=== PATIENT | male | born 1975 | race Caucasian/White ===

== ENCOUNTER 2017-12-25 01:36 | Emergency (ER) ==
[2017-12-25 01:47] VITALS: BP 140/90; TEMP 98; BMI 37.5
[2017-12-25] MEDS ORDERED: PROTONIX PO STA (01:54)
[2017-12-25] MEDS ORDERED: ASPIRIN CHEWABLE PO STA (01:54)
[2017-12-25] MEDS ORDERED: GI COCKTAIL PO STA (01:54)
--- NOTE | 2017-12-25 01:58 | ED.PDOC ---
General ED Provider: Dr. HARJEET MACK Chief Complaint: Shortness of Air Stated Complaint: Patient having shortness of breath since yesterday, was not able to sleep, uses c pap, today started having heavyness in chest. does not radiate, no aggravating or relieving factors. Time Seen by Physician: 01:56 Mode of Arrival: Walk-In Information Source: Patient Primary Care Provider: PRISCILA OLIVAREZ Nursing and Triage Documentation Reviewed and Agree: Yes Reviewed sepsis parameters & appropriate labs ordered?: No System Inflammatory Response Syndrome: Not Applicable Sepsis Protocol: For patient's 13 years and over: Temp is 96.8 and below OR 101 and greater Pulse >90 BPM Resp >20/minute Acutely Altered Mental Status Are patient's symptoms suggestive of a new infection, such as: -Pneumonia -Skin, Soft Tissue -Endocarditis -UTI -Bone, Joint Infection -Implantable Device -Acute Abdominal Infection -Wound Infection -Meningitis -Blood Stream Catheter Infection -Unknown Cardiovascular Complaint Exam - Chest Pain Complaint/Exam Onset: Gradual Symptoms Are: Still present Timing: Constant Initial Severity: Moderate Current Severity: Moderate Location: Reports: Midsternal Pain Radiates: Reports: None Character: Reports: Heaviness Aggravating: Reports: None Alleviating: Reports: None Associated Signs and Symptoms: Reports: Short of air. Denies: Diaphoresis, Nausea, Vomiting, Fever, Palpitations, Cough, Hemoptysis, Back pain, Abdominal pain, Dizziness, Calf pain, Calf swelling Related Surgical History: Reports: None History of Healthcare-Acquired Pneumonia: Reports: No AMI/ACS Risk Factors: Reports: None TAD Risk Factors: Reports: None Pulmonary Embolism Risk Factors: Reports: None Prior Care for this Complaint: No Recent Stress Test: No Recent Echo/LV Function: No JVD Present: No Subcutaneous Emphysema Present: No Diminshed Breath Sounds: No Reproducible Chest Wall Pain: No Bilateral Pulses Present: No Unequal Pulses Noted: No If Risk Factors for PE Consider: Chest CT with contrast Differential Diagnoses: Stable Angina, GI Diseasae Quality Indicators For Acute MA or Cardiac Chest Pain: EKG in 10min., ASA if indicated Review of Systems - Review Of Systems Constitutional: Reports: Malaise, Weakness Eyes: Reports: No symptoms Ears, Nose, Mouth, Throat: Reports: No symptoms Respiratory: Reports: Short of air Cardiac: Reports: Chest pain GI: Reports: No symptoms : Reports: No symptoms Musculoskeletal: Reports: No symptoms Skin: Reports: No symptoms Neurological: Reports: No symptoms Endocrine: Reports: No symptoms Hematologic/Lymphatic: Reports: No symptoms All Other Systems: Reviewed and Negative Past Medical History - Past Medical History Previously Healthy: Yes Endocrine: Reports: Dyslipidemia Cardiovascular: Reports: Hypertension Respiratory: Reports: Other (DIGNA) Hematological: Reports: None Gastrointestinal: Reports: None Genitourinary: Reports: None Neuro/Psych: Reports: None Musculoskeletal: Reports: None Cancer: Reports: None - Surgical History General Surgical History: Reports: None - Family History Family History: Reports: None - Social History Smoking Status: Former smoker Hx Substance Use: No Alcohol Screening: Occasionally - Immunizations Tetanus Shot up to Date: Yes Physical Exam - Physical Exam Appearance: Well-appearing, No pain distress, Well-nourished Eyes: URMILA, EOMI, Conjunctiva clear ENT: Ears normal, Nose normal, Oropharynx normal Respiratory: Airway patent, Breath sounds clear, Breath sounds equal, Respirations nonlabored Cardiovascular: RRR, Pulses normal, No rub, No murmur GI/: Soft, Nontender, No masses, Bowel sounds normal, No Organomegaly Musculoskeletal: Normal strength, ROM intact, No edema, No calf tenderness Skin: Warm, Dry, Normal color Neurological: Sensation intact, Motor intact, Reflexes intact, Cranial nerves intact, Alert, Oriented Psychiatric: Affect appropriate, Mood appropriate Interpretation - Radiology Interpretation Radiology Interpretation By: Radiologist Radiology Results: Negative Exam Interpreted: CT Scan Re-Evaluation - Re-Evaluation Time of Re-Evaluation: 04:14 Status: Improved Critical Care Note - Critical Care Note Total Time (mins): 15 Course - Course Hematology/Chemistry: 12/25/17 02:20 12/25/17 02:20 Orders, Labs, Meds: Lab Review 12/25/17 12/25/17 12/25/17 01:55 02:20 02:20 WBC 7.32 RBC 4.68 L Hgb 14.5 Hct 40.2 L MCV 85.9 MCH 31.0 MCHC 36.1 H RDW Coeff of Jefry 12.1 Plt Count 234 Immature Gran % (Auto) 0.3 Neut % (Auto) 48.6 Lymph % (Auto) 37.0 [place] % (Auto) 10.1 H Eos % (Auto) 3.0 Baso % (Auto) 1.0 Immature Gran # (Auto) 0.0 Neut # (Auto) 3.6 Lymph # (Auto) 2.7 [place] # (Auto) 0.7 Eos # (Auto) 0.2 Baso # (Auto) 0.1 D-Dimer (Manual) Puncture Site Rr O2 Saturation 99.0 ABG pH 7.551 H* ABG pCO2 30.4 L ABG pO2 114.0 H ABG HCO3 26.6 H ABG Total CO2 28 ABG Base Excess 4 H Lauro Test + FiO2 % 21.0 Sodium 141 Potassium 3.8 Chloride 106 Carbon Dioxide 24 Anion Gap 14.8 BUN 14 Creatinine 1.08 Estimated GFR (MDRD) 75.00 BUN/Creatinine Ratio 12.96 Glucose 106 H Calcium 10.4 H Total Bilirubin 0.5 AST 23 ALT 45 Alkaline Phosphatase 57 Total Creatine Kinase 189 CK-MB (CK-2) 1.3 CK-MB (CK-2) % 0.43675 Troponin I < 0.0100 B-Natriuretic Peptide Total Protein 7.1 Albumin 3.9 Globulin 3.2 Albumin/Globulin Ratio 1.22 12/25/17 12/25/17 02:20 02:20 WBC RBC Hgb Hct MCV MCH MCHC RDW Coeff of Jefry Plt Count Immature Gran % (Auto) Neut % (Auto) Lymph % (Auto) [place] % (Auto) Eos % (Auto) Baso % (Auto) Immature Gran # (Auto) Neut # (Auto) Lymph # (Auto) [place] # (Auto) Eos # (Auto) Baso # (Auto) D-Dimer (Manual) 149.65 Puncture Site O2 Saturation ABG pH ABG pCO2 ABG pO2 ABG HCO3 ABG Total CO2 ABG Base Excess Lauro Test FiO2 % Sodium Potassium Chloride Carbon Dioxide Anion Gap BUN Creatinine Estimated GFR (MDRD) BUN/Creatinine Ratio Glucose Calcium Total Bilirubin AST ALT Alkaline Phosphatase Total Creatine Kinase CK-MB (CK-2) CK-MB (CK-2) % Troponin I B-Natriuretic Peptide 25 Total Protein Albumin Globulin Albumin/Globulin Ratio Orders Category Date Time Status ABG DRAW REQUEST Stat CARDIO 12/25/17 01:55 Completed EKG-(ED ONLY) Stat CARDIO 12/25/17 01:54 Completed NPO REMINDER: IMAGING ONCE CARE 12/25/17 01:55 Completed IV [ED IV/MEDIPORT/POWERPORT] .ONCE EMERGENCY 12/25/17 02:09 Active ABG Stat LAB 12/25/17 01:55 Completed B-TYPE NATRIURETIC PEPTIDE Stat LAB 12/25/17 02:20 Completed CBC W/ AUTO DIFF Stat LAB 12/25/17 02:20 Completed COMPREHENSIVE METABOLIC PANEL Stat LAB 12/25/17 02:20 Completed CREATINE KINASE Stat LAB 12/25/17 02:20 Completed D-DIMER Stat LAB 12/25/17 02:20 Completed TROPONIN I Stat LAB 12/25/17 02:20 Completed 0.9 % Sodium Chloride [Saline Flush] MEDS 12/25/17 02:09 Ordered 1 syr IVF PRN PRN Aspirin [Aspirin Chewable] MEDS 12/25/17 01:54 Discontinued 324 mg PO ONCE STA Mag-Al Plus//Lidocaine [Gi Cocktail] MEDS 12/25/17 01:54 Discontinued 30 ml PO ONCE STA Pantoprazole Sodium [Protonix] MEDS 12/25/17 01:54 Discontinued 40 mg PO ONCE STA Sodium Chloride 0.9% [Sodium Chloride] 500 ml MEDS 12/25/17 02:40 Active IV 100 mls/hr CT CHEST W/O CONTRAST Stat RADS 12/25/17 03:25 Completed Medications Generic Name Dose Route Start Last Admin Trade Name Freq PRN Reason Stop Dose Admin Sodium Chloride 500 mls @ 100 mls/hr 12/25/17 02:40 12/25/17 02:41 Sodium Chloride IV 12/25/17 07:39 100 mls/hr .Q5H STA Administration Sodium Chloride 1 syr 12/25/17 02:09 Saline Flush IVF PRN PRN To flush IV Discontinued Medications Generic Name Dose Route Start Last Admin Trade Name Freq PRN Reason Stop Dose Admin Al Hydroxide/Mg Hydroxide 30 ml 12/25/17 01:54 12/25/17 02:26 Gi Cocktail PO 12/25/17 01:55 30 ml ONCE STA Administration Aspirin 324 mg 12/25/17 01:54 12/25/17 02:25 Aspirin Chewable PO 12/25/17 01:55 324 mg ONCE STA Administration Pantoprazole Sodium 40 mg 12/25/17 01:54 12/25/17 02:26 Protonix PO 12/25/17 01:55 40 mg ONCE STA Administration Vital Signs: Temp Pulse Resp BP Pulse Ox 12/25/17 01:37 98 F 71 14 140/90 94 L FRANCESCA Risk Score FRANCESCA Risk Score: Risk Score Odds of by 30D 0 0.1 (0.1-0.2) 1 0.3 (0.2-0.3) 2 0.4 (0.3-0.5) 3 0.7 (0.6-0.9) 4 1.2 (1.0-1.5) 5 2.2 (1.9-2.6) 6 3.0 (2.5-3.6) 7 4.8 (3.8-6.1) Departure - Departure Time of Disposition: 02:01 Disposition: HOME SELF-CARE Discharge Problem: Chest pain Qualifiers: Chest pain type: precordial pain Qualified Code(s): R07.2 - Precordial pain GERD (gastroesophageal reflux disease) Qualifiers: Esophagitis presence: without esophagitis Qualified Code(s): K21.9 - Gastro- esophageal reflux disease without esophagitis Instructions: Chest Pain (ED) Condition: Stable Pt referred to PMD for follow-up: Yes IPMP verified?: No Additional Instructions: No spicy food, no fried food. f/u with PMD for further evaluation. Life style modifications Prescriptions: Pantoprazole Sodium [Protonix] 40 mg PO BIDAC #60 tablet. Sucralfate Susp [Carafate] 1 gm PO ACHS #1 bottle Allergies/Adverse Reactions: Allergies No Known Allergies Allergy (Unverified 12/25/17 02:21) Home Medications: Ambulatory Orders Alprazolam 0.25 mg PO BID PRN 12/25/17 Amlodipine Besylate [Norvasc] 5 mg PO DAILY 12/25/17 Bisoprolol Fumarate 5 mg PO DAILY 12/25/17 Pantoprazole Sodium [Protonix] 40 mg PO BIDAC #60 tablet. 12/25/17 Simvastatin 20 mg PO DAILY 12/25/17 Sucralfate Susp [Carafate] 1 gm PO ACHS #1 bottle 12/25/17 Tramadol HCl [Ultram] 50 mg PO TID PRN 12/25/17 Disposition Discussed With: Patient, Family
[2017-12-25] MEDS ORDERED: SODIUM CHLORIDE 500 ML IV STA (02:40)
--- NOTE | 2017-12-25 03:58 | CT ---
EXAM: CT chest without intravenous contrast 12/25/2017. Sagittal and coronal reformatted images obt ained HISTORY: Shortness of a air COMPARISON: None. FINDINGS: The heart size appears within normal limits. There is no pericardial effusion. There is no pulmonary consolidation, effusion or pneumothorax. Diffuse hepatic steatosis. Limited vi ews of the upper abdomen show no acute abnormality. There is no acute osseous abnormality. IMPRESSION: No acute cardiopulmonary process.
== END 2017-12-25 04:20 | disposition home or self-care (01) ==
LOC: ED 01:36
DX: R07.2 Precordial pain (principal); K21.9 Gastro-esophageal reflux disease without esophagitis; R06.02 Shortness of breath; E78.5 Hyperlipidemia, unspecified; I10 Essential (primary) hypertension; G47.30 Sleep apnea, unspecified
CPT/HCPCS: 36415; 80053; 82550; 82553; 82803; 83880; 84484; 85025; 85379; 93005; 93010; 96360; 96361; 99283

== ENCOUNTER 2020-09-12 11:44 | Observation (INO) ==
[2020-09-12] MEDS ORDERED: VISTARIL INJ IM PRN (12:13)
[2020-09-12] MEDS ORDERED: TYLENOL PO PRN (12:13)
[2020-09-12] MEDS ORDERED: NITROSTAT SL PRN (12:13)
[2020-09-12] MEDS ORDERED: ATROPINE SULFATE PFS IVP PRN (12:13)
[2020-09-12] MEDS ORDERED: VASOTEC IV IVP PRN (12:19)
[2020-09-12] MEDS ORDERED: DECADRON IM ONE (12:19)
[2020-09-12 12:32] VITALS: BMI 42.7
[2020-09-12] MEDS ORDERED: DYAZIDE PO PRN (12:36)
[2020-09-12] MEDS ORDERED: XANAX PO PRN (12:36)
[2020-09-12 12:40] LABS: BASOPHILS # (AUTO) 0.1 K/uL (0-0.2); BASOPHILS % (AUTO) 0.8 % (0.0-3.0); EOSINOPHILS # (AUTO) 0.2 K/ul (0.0-0.7); EOSINOPHILS % (AUTO) 2.1 % (0.0-7.0); HEMATOCRIT 43.7 % (42.0-52.0); HEMOGLOBIN 15.3 g/dl (14.0-18.0); IMMATURE GRANULOCYTE % (AUTO) 0.5 % (0.0-5.0); LYMPHOCYTES # (AUTO) 1.6 K/uL (0.60-3.4); LYMPHOCYTES % (AUTO) 20.7 (10.0-50.0); MEAN CORPUSCULAR HEMOGLOBIN 30.7 pg (27.0-31.0); MEAN CORPUSCULAR VOLUME 87.8 fl (80.0-94.0); MONOCYTES # (AUTO) 0.8 K/uL (0.4-2.0); MONOCYTES % (AUTO) 9.7 (0-10); NEUTROPHILS # (AUTO) 5.2 K/ul (2.0-6.9); NEUTROPHILS % (AUTO) 66.2 % (42.2-75.2); PLATELET COUNT 235 10^3/uL (140-440); RDW COEFFICIENT OF VARIATION 12.3 % (11.6-14.8); RED BLOOD COUNT 4.98 10^6/ul (4.70-6.10); WHITE BLOOD COUNT 7.92 K/ul (4.2-10.2)
[2020-09-12 12:52] LABS: ALANINE AMINOTRANSFERASE 106.9 U/L (0-50); ALBUMIN 4.68 g/dL (3.5-5.0); ALKALINE PHOSPHATASE 93.3 U/L (38-126); ASPARTATE AMINO TRANSFERASE 46.1 U/L (17-59); BILIRUBIN,TOTAL 0.57 mg/dL (0.2-1.3); BLOOD UREA NITROGEN 13.4 mg/dL (9-20); CALCIUM 10.3 mg/dL (8.4-10.2); CARBON DIOXIDE 28.4 mmol/L (22-30.0); CHLORIDE 101.9 mmol/L (98-107); CREATININE 0.95 mg/dL (0.60-1.10); POTASSIUM 3.85 mmol/L (3.5-5.1); SODIUM 138.1 mmol/L (134.5-145); TOTAL PROTEIN 8.01 g/dL (6.3-8.2)
[2020-09-12] MEDS: PROTONIX PO SCH ×2 (13:09→17:08)
[2020-09-12] MEDS: TORADOL IVP SCH ×2 (13:09→20:47)
--- NOTE | 2020-09-12 13:25 | CT ---
EXAM: CT abdomen with and without contrast. CT pelvis with and without contrast. HISTORY: Left upper quadrant pain. COMPARISON: None. TECHNIQUE: Multiple axial images of the abdomen and pelvis were obtained prior to and following intr avenous administration of 75 mL of Visipaque 320, low osmolar. Images reformatted in the sagittal an d coronal plane. FINDINGS: Band-like opacities are seen in both lower lobes. Degenerative changes are present in the spine. Liver enlarged and diffusely low density. The gallbladder, pancreas, spleen, adrenal glands are unre markable. A 0.2 cm nonobstructing left renal calculus is present. There is a 1.5 cm left renal cyst . No hydronephrosis is seen. Ureters are not dilated. Bladder is normal. There is no bowel obstruction or acute inflammation. The appendix is normal. Fat-containing umbilical hernia is present. No localized prostate abnormality identified. No free fluid, free air or lymphadenopathy detected. Minimal atherosclerotic calcifications are pres ent. IMPRESSION: 1. Left nephrolithiasis without obstructive uropathy. 2. Hepatomegaly with fatty infiltration. 3. Fat-containing umbilical hernia. 4. Dependent subsegmental atelectasis in both lower lobes.
--- NOTE | 2020-09-12 13:51 | PN ---
DATE OF SERVICE: 09/12/2020 SUBJECTIVE: He was seen in the office as a walk in complaining of having left sided lower costal pain, left upper quadrant pain. He was given Morphine Sulfate in the emergency room which according to him didn't even touch him. He has several other complaints about left lower quadrant but according to him nothing was done about it. The patient has fracture of the ribs. No pneumothorax. No distress. Oxygen saturation more than 95% on room air. He is present in the room. The patient is going to be admitted for pain control. His pain level is 9-10 on scale of 1-10. Besides that he needs to have a CT scan of the abdomen and pelvis was contrast to rule out any damage to any other intraabdominal problems. TIME SPENT: More than 30 minutes. Plan and coordination of the patient's care discussed in the presence of nurse. [place]
--- NOTE | 2020-09-12 13:56 | DI ---
EXAM: Chest two views HISTORY: Left upper quadrant intractable pain COMPARISON: 09/11/2020 TECHNIQUE: Two views of the chest were performed FINDINGS: Possible trace left pleural effusion with mild left basilar atelectasis. Fracture left la teral ninth rib. Possible fracture of the 6th rib described on radiograph 1 day prior not clearly vi sualized. There is no pleural effusion or pneumothorax. The heart is enlarged in size. The mediast inal contour is normal. There are no acute abnormalities of the bones. IMPRESSION: 1. Possible trace left pleural effusion with mild left basilar atelectasis. Fracture left lateral n inth rib. 2. Cardiomegaly
[2020-09-12] MEDS: MORPHINE 4 MG/ML SYRINGE IVP PRN ×3 (14:44→23:19)
[2020-09-12] MEDS: NORVASC PO SCH (21:03)
[2020-09-12 21:11] LABS: BILIRUBIN,URINE Negative (NEGATIVE); CLARITY,URINE Clear (CLEAR); COLOR,URINE Yellow (YELLOW); GLUCOSE, URINE (UA) 2+ (NEGATIVE); KETONES,URINE Negative (NEGATIVE); LEUKOCYTE ESTERASE ,URINE Negative (NEGATIVE); NITRITE,URINE Negative (NEGATIVE); PROTEIN,URINE Negative (NEGATIVE); URINE, BLOOD Trace-intact (NEGATIVE); UROBILINOGEN,URINE 0.2 (0.2)
[2020-09-12 21:14] LABS: SQUAMOUS EPITHELIAL CELL,UR NOT PRESENT (0-5)
[2020-09-12 21:22] LABS: URINE RBC, MICROSCOPIC 0-2 (0-2)
[2020-09-13] MEDS: TORADOL IVP SCH ×2 (04:43→13:46)
[2020-09-13 05:13] VITALS: TEMP 97
[2020-09-13 05:14] LABS: BASOPHILS % (AUTO) 0.2 % (0.0-3.0); HEMATOCRIT 40.5 % (42.0-52.0); HEMOGLOBIN 13.8 g/dl (14.0-18.0); IMMATURE GRANULOCYTE % (AUTO) 0.3 % (0.0-5.0); LYMPHOCYTES # (AUTO) 1.1 K/uL (0.60-3.4); LYMPHOCYTES % (AUTO) 12.2 (10.0-50.0); MEAN CORPUSCULAR HGB CONC 34.1 (31.8-35.4); MONOCYTES # (AUTO) 0.6 K/uL (0.4-2.0); MONOCYTES % (AUTO) 7.2 (0-10); NEUTROPHILS % (AUTO) 80.1 % (42.2-75.2); PLATELET COUNT 259 10^3/uL (140-440); RDW COEFFICIENT OF VARIATION 12.2 % (11.6-14.8); WHITE BLOOD COUNT 8.77 K/ul (4.2-10.2)
[2020-09-13 05:41] LABS: ALANINE AMINOTRANSFERASE 89.4 U/L (0-50); ALBUMIN 4.38 g/dL (3.5-5.0); ASPARTATE AMINO TRANSFERASE 35.4 U/L (17-59); BILIRUBIN,TOTAL 0.73 mg/dL (0.2-1.3); BLOOD UREA NITROGEN 15.5 mg/dL (9-20); CALCIUM 10.24 mg/dL (8.4-10.2); CARBON DIOXIDE 28.9 mmol/L (22-30.0); CHLORIDE 101.8 mmol/L (98-107); CREATININE 0.91 mg/dL (0.60-1.10); GLUCOSE 149.6 mg/dL (74-106); POTASSIUM 4.04 mmol/L (3.5-5.1); SODIUM 137.6 mmol/L (134.5-145); TOTAL PROTEIN 7.64 g/dL (6.3-8.2)
[2020-09-13] MEDS: PROTONIX PO SCH (05:41)
--- NOTE | 2020-09-13 08:37 | HP ---
DATE OF SERVICE: 09/12/20 REASON FOR HOSPITALIZATION/HISTORY OF PRESENT ILLNESS: 44-year-old male went to the Emergency Room 09/11 after fall, left rib fracture still in immense pain. The patient can't take deep breath, pain 9-12 on a 1-10 scale taking Percocet - does not help. Left abdominal pain, unable to sit and can't walk. PAST MEDICAL HISTORY: Hypertension Gouty arthritis Obesity DIANE Dyslipidemia MIgraines Sleep apnea - CPAP REVIEW OF SYSTEMS: CONSTITUTIONAL: Fatigue. No fever. HEENT: No sinus drainage, no sore throat. RESPIRATORY: No cough, no congestion. CARDIOVASCULAR: Shortness of breath. No atypical chest pain for coronary artery disease. No angina, CHF symptoms or palpitations. GASTROINTESTINAL: Positive for abdominal pain. No melena. No GERD. GENITOURINARY: No hematuria, no prostatism, no polyuria. EXPORT DOCUMENTS CLERK: No blackout, no dizziness, no headache, no double vision. Gait is unsteady. MUSCULOSKELETAL: No osteoarthritis pain, no joint swelling. ENDOCRINE: No weight loss, no weight gain. SKIN: Not dry, no rash. PSYCHIATRIC: Not anxious, no depression, no suicidal thoughts, no homicidal thoughts. SOCIAL HISTORY: The patient is with one child. He is a pipefitter welder. Smoking one pack per week- the patient quit 09/13. Alcohol use - yes. FAMILY HISTORY: Father is living. Mother is living. Brother - 1/2 brother. One sister, 1/2 sister. MEDICATIONS: Tramadol 50 mg p.o. one t.i.d. Xanax 0.25 mg one b.i.d. Norvasc 5 mg one daily Simvastatin 20 mg one daily Bisoprolol 5 mg one daily Sildenafil 100 mg one daily p.r.n. Allopurinol 300 mg one daily Dyazide 37.5 mg 1-2 times week Antivert 25 mg t.i.d. p.r.n. Medrol dose monica ALLERGIES: PAXIL (ED), LEXAPRO, PHYSICAL EXAMINATION: GENERAL: Oriented times three. Pale and diaphoretic. V/S: Pulse 104, BP 132/90, temperature 99.0, 02 sat 98%, height 6'3" GENERAL APPEARANCE: Oriented times three. HEENT: Normal. NECK: No JVP, no bruits. RESPIRATORY: Lungs - decreased breath sounds. CARDIOVASCULAR: Positive for tachyarrhythmia. S1, S2, no S3, no murmur. No cyanosis, clubbing. No ascites. GI/ABDOMEN: Tenderness, swelling left upper quadrant, radiates left flank. Bowel sounds are active. EXTREMITIES: No edema, pulses +1, equal. EXPORT DOCUMENTS CLERK: Deep tendon reflexes, sensory, motor and gait all normal. RECTAL/PROSTATE: Declined. LABS/IMAGING: CT of the abdomen and pelvis - left nephrolithiasis without obstructive uropathy, hepatomegaly, fat-containing hernia, atelectasis in both lobes. Sodium 138, potassium 3.8, white count 7.9, hemoglobin 15.3, hematocrit 43.7, platelets 235. AST 46, ALT 106, BUN 13, creatinine 0.9, sodium 138, potassium 3.8. ASSESSMENT: 1. Left 6th and 9th rib fracture. 2. Left upper quad pain. 3. Intractable pain left upper quadrant. 4. Status post fall on stairs. 5. Hypertension. 6. Vestibular dysfunction. 7. Gouty arthritis. 8. Hyperglycemia. 9. Migraines. 10. Sleep apnea - CPAP. 11. Obesity. 12. ED. 13. DIANE. 14. Dyslipidemia. 15. Fatty liver- complications discussed. PLAN: 1. Admit. 2. All ER records reviewed and discussed. 3. Routine telemetry - no cardiac markers. 4. Chest x-ray. 5. CT scan abdomen and pelvis with and without. 6. Morphine IV 3-4 mg q.2-3h p.r.n. 7. Toradol 30 mg IV q.8hr. 8. 1 cc Decadron (4 mg) IM now. 9. Vasotec 1-25 mg IV p.r.n. systolic greater than 160. 10. UA. 11. Regular diet. 12. Continue home meds - except Tramadol. TIME SPENT: More than 70 minutes. MTDD
[2020-09-13] MEDS ORDERED: ZOCOR PO SCH (09:00)
[2020-09-13] MEDS ORDERED: ZEBETA PO SCH (09:00)
[2020-09-13] MEDS ORDERED: DECADRON IM ONE (09:00)
[2020-09-13] MEDS ORDERED: ZYLOPRIM PO SCH (09:00)
[2020-09-13 09:33] VITALS: BP 155/95
[2020-09-13] MEDS: NORVASC PO SCH (09:49)
--- NOTE | 2020-09-13 11:03 | PCM.PROG ---
Attending Provider: ATTENDING PROVIDER: Dr. PRISCILA OLIVAREZ This patient is seen with Sheeba Boateng, Nurse Practitioner. DATE OF SERVICE: 09/13/20 SUBJECTIVE: This 44 year old /WHITE M was hospitalized 09/12/20. The patient states the pain is improved with Toradol IV along with Morphine. Blood pressure has been elevated through the night. The patient states that he has been getting up through the night and would like to go home. REVIEW OF SYSTEMS: CONSTITUTIONAL: No night sweats. No fatigue, malaise, lethargy. No fever or chills. HEENT: Eyes: No visual changes. No eye pain. No eye discharge. ENT: No runny nose. No epistaxis. No sinus pain. No odynophagia. No congestion. RESPIRATORY: No cough, no congestion. No hemoptysis. No shortness of breath. CARDIOVASCULAR: No angina symptoms. No CHF symptoms. No atypical chest pain for CAD. No palpitations. No orthopnea.. GASTROINTESTINAL: No abdominal pain. No nausea or vomiting. No diarrhea or constipation. No hematemesis. No hematochezia. GENITOURINARY: No urgency. No frequency. No dysuria. No hematuria. No obstru ctive symptoms. No discharge. No pain. No significant abnormal bleeding. MUSCULOSKELETAL: No musculoskeletal pain; no joint swelling. Left sided pain chest and abdomen. NEUROLOGICAL: Awake, alert, oriented to time, place and person. No headache. No neck pain. No syncope. No seizures. No dizziness. PSYCHIATRIC: Not anxious. No depression. No suicidal thoughts. No homicidal thoughts. SKIN: No rash. No lesions. No wounds. ENDOCRINE: No unexplained weight loss. No weight gain. HEMATOLOGIC/LYMPHATIC: No anemia. No purpura. No petechiae. No prolonged or excessive bleeding. No palpable lymph nodes. PHYSICAL EXAMINATION: GENERAL: The patient is awake, alert and oriented, sitting in bed in no distress. VITAL SIGNS: Temperature 97.0 F, Pulse 80, Respiratory Rate 20, BP 139/102, Pulse Ox 96% HEENT: Head normocephalic, atraumatic. Eyes: Extraocular muscles are intact. Pupils are equal, round and reactive to light and accommodation. Ears: No lesions. Nose appeared normal. Throat: No exudate or erythema. NECK: Supple. No JVD, no carotid bruit. No lymphadenopathy or thyromegaly. LUNGS: Clear to auscultation. Percussion note normal. Chest symmetrical. HEART: S1, S2, no S3. No murmurs. No cyanosis or clubbing. No ascites. Pulses: Dorsalis pedis and posterior tibial pulses +1 to +2 both sides. ABDOMEN: Soft. Non-tender. Bowel sounds active. No CVA tenderness. No mass felt. Tenderness left upper quadrant. EXTREMITIES: No edema. Full range of motion of all extremities, equal. NEUROLOGIC: No focal deficit. Cranial nerves II through XII are grossly intact. No headache, no double vision or headache. SKIN: Not dry. Intact. Turgor-normal. LYMPHATIC: No palpable lymph nodes/no lymphedema. MUSCULOSKELETAL: Normal joints with no swelling. Muscle tone is normal. LAB REVIEW: 09/13/20 04:40 09/13/20 04:40 09/13/20 04:40: Sodium 137.6, Potassium 4.04, Chloride 101.8, Carbon Dioxide 28.9, Anion Gap 10.94, BUN 15.5, Creatinine 0.91, Estimated GFR (MDRD) 91.00, BUN/Creatinine Ratio 17.03, Glucose 149.6 H, Calcium 10.24 H, Total Bilirubin 0.73, AST 35.4, ALT 89.4 H, Alkaline Phosphatase 71.0, Total Protein 7.64, Albumin 4.38, Globulin 3.26, Albumin/Globulin Ratio 1.34 09/13/20 04:40: WBC 8.77, RBC 4.60 L, Hgb 13.8 L, Hct 40.5 L, MCV 88.0, MCH 30.0, MCHC 34.1, RDW Coeff of Jefry 12.2, Plt Count 259, Immature Gran % (Auto) 0.3, Neut % (Auto) 80.1 H, Lymph % (Auto) 12.2, [place] % (Auto) 7.2, Eos % (Auto) 0.0, Baso % (Auto) 0.2, Neut # (Auto) 7.0 H, Lymph # (Auto) 1.1, [place] # (Auto) 0.6, Eos # (Auto) 0.0, Baso # (Auto) 0.0, Immature Gran # (Auto) 0.0 09/12/20 20:45: Urine Color Yellow, Urine Clarity Clear, Urine pH 7.0, Ur Specific [place] 1.020, Urine Protein Negative, Urine Glucose (UA) 2+ H, Urine Ketones Negative, Urine Blood Trace-intact H, Urine Nitrite Negative, Urine Bilirubin Negative, Urine Urobilinogen 0.2, Ur Leukocyte Esterase Negative, Urine Microscopic RBC 0-2, Ur Squamous Epith Cells Not present 09/12/20 12:35: Sodium 138.1, Potassium 3.85, Chloride 101.9, Carbon Dioxide 28.4, Anion Gap 11.65, BUN 13.4, Creatinine 0.95, Estimated GFR (MDRD) 87.00, BUN/Creatinine Ratio 14.10, Glucose 132.0 H, Calcium 10.30 H, Total Bilirubin 0.57, AST 46.1, ALT 106.9 H, Alkaline Phosphatase 93.3, Total Protein 8.01, Albumin 4.68, Globulin 3.33, Albumin/Globulin Ratio 1.40 09/12/20 12:35: WBC 7.92, RBC 4.98, Hgb 15.3, Hct 43.7, MCV 87.8, MCH 30.7, MCHC 35.0, RDW Coeff of Jefry 12.3, Plt Count 235, Immature Gran % (Auto) 0.5, Neut % (Auto) 66.2, Lymph % (Auto) 20.7, [place] % (Auto) 9.7, Eos % (Auto) 2.1, Baso % (Auto) 0.8, Neut # (Auto) 5.2, Lymph # (Auto) 1.6, [place] # (Auto) 0.8, Eos # (Au to) 0.2, Baso # (Auto) 0.1, Immature Gran # (Auto) 0.0 ASSESSMENT: Please see below. 1. Left upper quadrant pain 2. left 6 and 9th rid fracture 3. Status post fall 4. Hypertension 5. Cardiomegaly noted on chest x-ray 6. Elevated liver function 7. Fatty liver 8. Obesity PLAN: 1. 2D echo 2. 1cc Decadrone today 3. Recheck Blood pressure Plan and coordination of the patient's care discussed in the presence of Pre K Teacher and nurse. SCRIBED BY: ERIC CORREA Automatic Spreader Operator scribed while in presence of service performed by Dr. Olivarez/Sheeba Boateng APRN on 09/13/20 ([id number])
--- NOTE | 2020-09-13 13:08 | CM.DICTOOL ---
ADMISSION: 09/12/20 11:44 DISCHARGE: SEPTEMBER 13, 2020 DATE OF SERVICE: 09/13/20 FINAL DIAGNOSIS RIB FRACTURE, LEFT 6TH AND 9TH LEFT UPPER QUADRANT PAIN INTRACTABLE PAIN S/P FALL ON STAIRS HYPERTENSION VESTIBULAR DYSFUNCTION GOUTY ARTHRITIS HYPERGLYCEMIA MIGRAINES SLEEP APNEA, C-PAP OBESITY BMI 60 ED GENERALIZED ANXIETY DISORDER FATTY LIVER ECHOCARDIOGRAM COMPLETED 09/13/2020 LAST VITALS Temp Pulse Resp BP Pulse Ox 97.0 F L 89 20 155/95 H 95 09/13/20 05:12 09/13/20 09:32 09/13/20 05:12 09/13/20 09:32 09/13/20 10:00 TAKE THESE MEDICATIONS AT HOME Allopurinol (Allopurinol 100 Mg Tablet) 300 mg PO DAILY [facility] Last Admin: 09/13/20 09:49 Dose: 300 mg Documented by: Alprazolam (Alprazolam 0.25 Mg Tablet) 0.25 mg PO BID PRN PRN Reason: Anxiety Amlodipine Besylate (Amlodipine Besylate 5 Mg Tablet) 5 mg PO BID [facility] Last Admin: 09/13/20 09:49 Dose: 5 mg Documented by: Bisoprolol Fumarate (Bisoprolol Fumarate 5 Mg Tablet) 10 mg PO DAILY [facility] Last Admin: 09/13/20 09:49 Dose: 10 mg Documented by: Simvastatin (Simvastatin 10 Mg Tablet) 20 mg PO DAILY [facility] Last Admin: 09/13/20 09:50 Dose: 20 mg Documented by: : Triamterene/HCTZ (Triamterene/Hydrochlorothiazid 37.5/25 Mg Capsule) 1 cap PO 2 TIMES PER WEEK PRN PRN Reason: EDEMA Silidenafil 100 mg daily PRN Ultram 50 mg TID PRN ALLERGIES No Known Allergies Allergy (Verified 09/12/20 12:42) DISCONTINUED MEDICATIONS Ultram NEW PRESCRIPTIONS: PREDNISONE 10 MG BID FOR 5 DAYS TAKE WITH FOOD OXYCODONE 7.5 MG TAKE 1 EVERY 6 HOURS PRN PAIN SMOKING: NOT APPLICABLE DISEASE SPECIFIC EDUCATION: PAIN MEDICATION ORAL STEROIDS AND RISK OF GI IRRITATION NO WORK STATUS APPOINTMENT LAB REVIEW: 09/13/20 04:40 09/13/20 04:40 09/13/20 04:40: Sodium 137.6, Potassium 4.04, Chloride 101.8, Carbon Dioxide 28.9, Anion Gap 10.94, BUN 15.5, Creatinine 0.91, Estimated GFR (MDRD) 91.00, BUN/Creatinine Ratio 17.03, Glucose 149.6 H, Calcium 10.24 H, Total Bilirubin 0.73, AST 35.4, ALT 89.4 H, Alkaline Phosphatase 71.0, Total Protein 7.64, Albumin 4.38, Globulin 3.26, Albumin/Globulin Ratio 1.34 09/13/20 04:40: WBC 8.77, RBC 4.60 L, Hgb 13.8 L, Hct 40.5 L, MCV 88.0, MCH 30.0, MCHC 34.1, RDW Coeff of Jefry 12.2, Plt Count 259, Immature Gran % (Auto) 0.3, Neut % (Auto) 80.1 H, Lymph % (Auto) 12.2, [place] % (Auto) 7.2, Eos % (Auto) 0.0, Baso % (Auto) 0.2, Neut # (Auto) 7.0 H, Lymph # (Auto) 1.1, [place] # (Auto) 0.6, Eos # (Auto) 0.0, Baso # (Auto) 0.0, Immature Gran # (Auto) 0.0 09/12/20 20:45: Urine Color Yellow, Urine Clarity Clear, Urine pH 7.0, Ur Specific [place] 1.020, Urine Protein Negative, Urine Glucose (UA) 2+ H, Urine Ketones Negative, Urine Blood Trace-intact H, Urine Nitrite Negative, Urine Bilirubin Negative, Urine Urobilinogen 0.2, Ur Leukocyte Esterase Negative, Urine Microscopic RBC 0-2, Ur Squamous Epith Cells Not present 09/12/20 12:35: Sodium 138.1, Potassium 3.85, Chloride 101.9, Carbon Dioxide 28.4, Anion Gap 11.65, BUN 13.4, Creatinine 0.95, Estimated GFR (MDRD) 87.00, BUN/Creatinine Ratio 14.10, Glucose 132.0 H, Calcium 10.30 H, Total Bilirubin 0.57, AST 46.1, ALT 106.9 H, Alkaline Phosphatase 93.3, Total Protein 8.01, Albumin 4.68, Globulin 3.33, Albumin/Globulin Ratio 1.40 09/12/20 12:35: WBC 7.92, RBC 4.98, Hgb 15.3, Hct 43.7, MCV 87.8, MCH 30.7, MCHC 35.0, RDW Coeff of Jefry 12.3, Plt Count 235, Immature Gran % (Auto) 0.5, Neut % (Auto) 66.2, Lymph % (Auto) 20.7, [place] % (Auto) 9.7, Eos % (Auto) 2.1, Baso % (Auto) 0.8, Neut # (Auto) 5.2, Lymph # (Auto) 1.6, [place] # (Auto) 0.8, Eos # (Auto) 0.2, Baso # (Auto) 0.1, Immature Gran # (Auto) 0.0 PLAN: DISCHARGE: HOME ACTIVITY: REST AT HOME. NO WORK UNTIL SEEN BY /JOANNE ON WORK STATUS WILL BE EVALUATED AT THAT TIME DIET: RESUME TOLERATED CODE STATUS: FULL CODE AN APPOINTMENT IS SCHEDULED ON August AT 2:[address] OLIVAREZ/DILIA BLEVINS APRN/MIRIAM MCKINNON APRN NO WORK UNTIL EVALUATED BY MR. NOE IS ALERT AND ORIENTED X 4. HE IS INDEPENDENT WITH ADL'S. HE IS AMBULATORY TO THE BATHROOM AND IN THE ROOM WITHOUT STAFF ASSISTANCE OR USE OF ASSISTIVE DEVICE. MR. NOE HAS SLEEP APNEA AND HAS A C-PAP MACHINE AVAILABLE FOR HIS USE. HE LIVES AT HOME WITH HIS . MR. NOE IS CONTINENT OF BOWEL AND BLADDER. 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 SKIN IS INTACT, HYDRATION STATUS IS GOOD. MD DILIA SANCHEZ APRN
--- NOTE | 2020-09-14 11:06 | PN ---
DATE OF SERVICE: 09/13/20 SUBJECTIVE: The patient was seen and examined with the nurse practitioner. The patient's pain is much less. He is up and about, no distress but requires pain shots every three to four hours. He will be discharged on Oxycodone q.6 hourly. He is advised to rest. He will be seen on Saturday. His echo was done because of cardiomegaly that showed up on the chest x-ray along with mild to moderate systolic hypertension. The patient was explained about this finding. His blood pressure may be high because of the pain but in any case his goal should be 135 or less. Explained to him that the patient is morbidly obese. Echo showed borderline dilated left ventricle with stiff left ventricle with LVH. LA size is normal. Valvular structures seem to be normal. It was a difficult echo. The patient has enlarged left ventricle. He was explained about the cardiomyopathy and the prognosis is not good. He strongly was advised a sleep study. He is going to think about it. The patient's CT scan of the abdomen was negative. His appetite, according to him, is excellent. Good bowel movement. Education carried out about the weight loss diet and he declined bariatric center referral. TIME SPENT: More than 30 minutes. Plan and coordination of the patient's care discussed in the presence of nurse. BEVERLY
--- NOTE | 2020-09-14 11:10 | PN ---
BILLING 09/12/20 ADMISSION DATE LEVEL 5 09/13/20 DISCHARGE MTDD
--- NOTE | 2020-09-14 11:13 | DS ---
DATE OF SERVICE: 09/13/2020 FINAL DIAGNOSIS: RIB FRACTURE, LEFT 6TH AND 9TH LEFT UPPER QUADRANT PAIN INTRACTABLE PAIN S/P FALL ON STAIRS HYPERTENSION VESTIBULAR DYSFUNCTION GOUTY ARTHRITIS HYPERGLYCEMIA MIGRAINES SLEEP APNEA, C-PAP OBESITY BMI 60 ED GENERALIZED ANXIETY DISORDER FATTY LIVER ECHOCARDIOGRAM COMPLETED 09/13/2020 LAST VITALS: Temp Pulse Resp BP Pulse Ox 97.0 F L 89 20 155/95 H 95 09/13/20 05:12 09/13/20 09:32 09/13/20 05:12 09/13/20 09:32 09/13/20 10:00 DISCHARGE INSTRUCTIONS: DISCHARGE: HOME. CODE STATUS: FULL CODE. AN APPOINTMENT IS SCHEDULED ON August AT 2:[address] OLIVAREZ/DILIA BLEVINS APRN/MIRIAM MCKINNON APRN. NO WORK UNTIL EVALUATED BY MD. TAKE THESE MEDICATIONS AT HOME: Allopurinol (Allopurinol 100 Mg Tablet) 300 mg PO DAILY [facility] Last Admin: 09/13/20 09:49 Dose: 300 mg Documented by: Alprazolam (Alprazolam 0.25 Mg Tablet) 0.25 mg PO BID PRN PRN Reason: Anxiety Amlodipine Besylate (Amlodipine Besylate 5 Mg Tablet) 5 mg PO BID [facility] Last Admin: 09/13/20 09:49 Dose: 5 mg Documented by: Bisoprolol Fumarate (Bisoprolol Fumarate 5 Mg Tablet) 10 mg PO DAILY [facility] Last Admin: 09/13/20 09:49 Dose: 10 mg Documented by: Simvastatin (Simvastatin 10 Mg Tablet) 20 mg PO DAILY [facility] Last Admin: 09/13/20 09:50 Dose: 20 mg Documented by: : Triamterene/HCTZ (Triamterene/Hydrochlorothiazide 37.5/25 Mg Capsule) 1 cap PO 2 TIMES PER WEEK PRN PRN Reason: EDEMA Silidenafil 100 mg daily PRN Ultram 50 mg TID PRN ALLERGIES: No Known Allergies Allergy (Verified 09/12/20 12:42) DISCONTINUED MEDICATIONS Ultram NEW PRESCRIPTIONS: PREDNISONE 10 MG BID FOR 5 DAYS TAKE WITH FOOD OXYCODONE 7.5 MG TAKE 1 EVERY 6 HOURS PRN PAIN SMOKING: NOT APPLICABLE DISEASE SPECIFIC EDUCATION: PAIN MEDICATION ORAL STEROIDS AND RISK OF GI IRRITATION NO WORK STATUS APPOINTMENT LAB REVIEW: 09/13/20 04:40 09/13/20 04:40 09/13/20 04:40: Sodium 137.6, Potassium 4.04, Chloride 101.8, Carbon Dioxide 28.9, Anion Gap 10.94, BUN 15.5, Creatinine 0.91, Estimated GFR (MDRD) 91.00, BUN/Creatinine Ratio 17.03, Glucose 149.6 H, Calcium 10.24 H, Total Bilirubin 0.73, AST 35.4, ALT 89.4 H, Alkaline Phosphatase 71.0, Total Protein 7.64, Albumin 4.38, Globulin 3.26, Albumin/Globulin Ratio 1.34 09/13/20 04:40: WBC 8.77, RBC 4.60 L, Hgb 13.8 L, Hct 40.5 L, MCV 88.0, MCH 30.0, MCHC 34.1, RDW Coeff of Jefry 12.2, Plt Count 259, Immature Gran % (Auto) 0.3, Neut % (Auto) 80.1 H, Lymph % (Auto) 12.2, [place] % (Auto) 7.2, Eos % (Auto) 0.0, Baso % (Auto) 0.2, Neut # (Auto) 7.0 H, Lymph # (Auto) 1.1, [place] # (Auto) 0.6, Eos # (Auto) 0.0, Baso # (Auto) 0.0, Immature Gran # (Auto) 0.0 09/12/20 20:45: Urine Color Yellow, Urine Clarity Clear, Urine pH 7.0, Ur Specific [place] 1.020, Urine Protein Negative, Urine Glucose (UA) 2+ H, Urine Ketones Negative, Urine Blood Trace-intact H, Urine Nitrite Negative, Urine Bilirubin Negative, Urine Urobilinogen 0.2, Ur Leukocyte Esterase Negative, Urine Microscopic RBC 0-2, Ur Squamous Epith Cells Not present 09/12/20 12:35: Sodium 138.1, Potassium 3.85, Chloride 101.9, Carbon Dioxide 28.4, Anion Gap 11.65, BUN 13.4, Creatinine 0.95, Estimated GFR (MDRD) 87.00, BUN/Creatinine Ratio 14.10, Glucose 132.0 H, Calcium 10.30 H, Total Bilirubin 0.57, AST 46.1, ALT 106.9 H, Alkaline Phosphatase 93.3, Total Protein 8.01, Albumin 4.68, Globulin 3.33, Albumin/Globulin Ratio 1.40 09/12/20 12:35: WBC 7.92, RBC 4.98, Hgb 15.3, Hct 43.7, MCV 87.8, MCH 30.7, MCHC 35.0, RDW Coeff of Jefry 12.3, Plt Count 235, Immature Gran % (Auto) 0.5, Neut % (Auto) 66.2, Lymph % (Auto) 20.7, [place] % (Auto) 9.7, Eos % (Auto) 2.1, Baso % (Auto) 0.8, Neut # (Auto) 5.2, Lymph # (Auto) 1.6, [place] # (Auto) 0.8, Eos # (Auto) 0.2, Baso # (Auto) 0.1, Immature Gran # (Auto) 0.0 ACTIVITY: REST AT HOME. NO WORK UNTIL SEEN BY /JOANNE ON WORK STATUS WILL BE EVALUATED AT THAT TIME DIET: RESUME TOLERATED HOSPITAL COURSE: The patient presented to the office on 09/12/2020. He had been to the emergency room on the after experiencing a fall on the left side of a set of stairs. His x-ray of the rids from the emergency room showed 6th and 9th left rid fractures. He was unable to walk and found to be in excruciating pain. Elevated blood pressure of 180/90 in the office. He was reporting some left upper quadrant pain. He was admitted for intractable pain left upper quadrant pain and tenderness. CT was done in order to make sure he had no damage to his spleen, this was normal just excessive bruising. He had rated his pain at 10-12 on a 1- 10 scale. He had been given Percocet 5mg in the emergency room. He was unable to walk, unable to get out the bed on his own, unable to eat. He denied any pain with breathing however he did have excruciating tenderness on the left side. He was admitted and given Toradol 30mg IV Q 8 hours along with 1cc 4mg of Decadron IM and then Morphine 3-4mg every 2-3 hours. After several doses of Morphine and two doses of Toradol he reported that his pain was finally relieved and under control. I do believe that the Decadron also helped alleviate some inflammation which was also causing pain. His blood pressure did remain significantly elevated. He had Vasotec 1.25mg IV to be given every 6 hours for systolic greater than 160. Given he was having no trouble today and pain seemed to be improved he was given another Decadron today but he will go home in stable condition with Oxycodone 7.5 one PO Q 4 hours PRN. He is to remain off work until Saturday. He will be seen in our office. He is instructed that he can use a binder to wrap. He is instructed to continue with increased rest, take deep breaths to prevent pneumonia. He does have a long history of hypertension. Blood pressure was 156/[address] Olivarez did do an Echo prior to discharge due to cardiomegaly on his chest x-ray. Chest x-ray did not show any pneumothorax and again CT of the abdomen was normal and there is no splenic damage. We will followup with him in the office on Saturday. TIME SPENT: More than 60 minutes. BEVERLY
--- NOTE | 2020-09-14 13:32 | ECHO2D ---
Date of Exam: 09/13/2020 Ordering Physician: DR. PRISCILA OLIVAREZ Room #: [id number] Reason for Echo: CARDIOMEGALY M-Mode Normal Adult Results LV Dimensions Normal Adult Results AoV Opening excursions >1.6 >1.6 LVEDD-base- 3.5-5.8 6.0 Ao root dimensions 2.0-3.7 4.0 LVESD-base- 3.1-4.6 L. Atrium dimensions 1.9-3.8 4.1 Post. Wall thickness 0.8-1.1 1.3 IV septum (thickness) 0.7-1.2 1.4 Post. Wall excursion 0.72-1.3 NORMAL Septal motion 0.6 Systolic motion R. Ventricular cavity 1.5-2.0 NORMAL LVEF 60% 45% Paradoxical septal wall motion NORMAL 2-D : 2-D M Mode Echocardiogram was performed using apical four chamber and left parasternal long and short axis views. Mitral, tricuspid and aortic valves appear to be normal. Contractility of the left ventricle seems to be normal, so is the cavity size. Left atrial cavity size and aortic root appear to be normal. There is no pericardial effusion. There is no thrombus noted in the left ventricle or left atrial cavity. No mitral valve prolapse noted. M-MODE: MV: NORMAL AV: NORMAL TV: NORMAL PV: CHAMBER SIZE: ENLARGED LEFT ATRIAL AND LEFT VENTRICLE CAVITIES WALL MOTION: STIFF SEPTUM--HYPOKINETIC PERICARDIUM: NORMAL INTERPRETATION: 1. LEFT VENTRICULAR HYPERTROPHY 2. ENLARGED LEFT ATRIAL AND LEFT VENTRICLE CAVITIES 3. BORDERLINE DILATED AORTIC ROOT 4. STIFF, HYPOKINETIC SEPTUM EJECTION FRACTION 45% MTDD
== END 2020-09-13 14:00 | disposition home or self-care (01) ==
LOC: MEDSURG A 11:44 → INTOOBSV 11:44
PROVIDERS: ADMIT Internal Medicine; ATTEND Internal Medicine
DX: S22.42XA Multiple fractures of ribs, left side, initial encounter for closed fracture; G47.33 Obstructive sleep apnea (adult) (pediatric); I51.7 Cardiomegaly; I10 Essential (primary) hypertension; M19.90 Unspecified osteoarthritis, unspecified site; E78.5 Hyperlipidemia, unspecified; F41.1 Generalized anxiety disorder; R10.12 Left upper quadrant pain